=== PATIENT | female | born 1995 | race Caucasian/White ===

== ENCOUNTER 2019-12-09 07:24 | Emergency (ER) | payer OTHER, SELFPAY ==
[2019-12-09] MEDS ORDERED: Ibuprofen 800 MG TAB ONE (08:37)
--- NOTE | 2019-12-09 09:17 | CT ---
CT CERVICAL SPINE: Date: 12/09/[address] of the cervical spine was performed following trauma. No fracture, dislocation, or soft tissue swelling seen. The facet joints are appropriately positioned and the C1 to dens distance is normal. There is no central canal or foraminal stenosis. I would not that the left lobe of the thyroid gland is larger than right, but the resolution does not allow me to comment on whether there might be any pathology in it or not. If there is any palpable abnormality, then an elective ultrasound might be a consideration. IMPRESSION: 1. No acute traumatic findings. 2. Left lobe of thyroid gland larger than right, a finding that may or may not be significant. Scan results called to Dr. Dorsey at 0822 hours on 12/09/2019. CODE CR. POS: HOME
--- NOTE | 2019-12-09 09:18 | RAD ---
RIGHT SHOULDER 3 VIEWS: Date: 12/09/2019 No fracture, dislocation, or AC joint widening seen. The visible adjacent ribs appear intact. IMPRESSION: No acute findings. POS: HOME
--- NOTE | 2019-12-09 09:18 | CT ---
CT BRAIN WITHOUT CONTRAST: 12/09/2019 FINDINGS: The ventricles are normal in size with no shift. No intracranial bleeding or extraaxial hematoma is s een. A few bright areas near the vertex of the skull anteriorly on the left are felt to be due to vol ume averaging. The skull appears intact. The visible paranasal sinuses are clear. No fractures are no yuriy. The mastoid air cells are clear. IMPRESSION: No acute intracranial finding. POS: HOME
--- NOTE | 2019-12-09 09:18 | RAD ---
THORACIC SPINE: No fracture, dislocation, or disc space abnormality was seen. The vertebra all appeared intact. IMPRESSION: No acute findings POS: HOME
== END 2019-12-09 08:36 | disposition home or self-care (01) ==
LOC: BURERS 07:24
DX: S09.90XA Unspecified injury of head, initial encounter (principal); S13.4XXA Sprain of ligaments of cervical spine, initial encounter; S29.012A Strain of muscle and tendon of back wall of thorax, initial encounter; M25.511 Pain in right shoulder; V54.5XXA Driver of pick-up truck or van injured in collision with heavy transport vehicle or bus in traffic accident, initial encounter
CPT/HCPCS: 70450; 72070; 72125; G0390; L0120